=== PATIENT | female | born 1935 | race African-American/Black ===

== ENCOUNTER → 2016-07-24 | Outpatient (CLI) | payer MEDICARE, MEDICAID ==
[2016-03-06 09:50] VITALS: BP 123/61
[~2016-07-24] MED LIST: AMIO200T2 PO; ASPI325T4 PO; CARV25TA PO; CARV6.252 PO; CLOP75TA PO; CONTRAST GIVEN MC PRN; DIPH25CA3 PO; DOBU1000; EZET10TA3 PO; FLUT16SP2 NAS; FLUT1DIS IH; FLUT1DIS3 IH; FURO-68 PO; FURO20TA3 PO; FURO80TA72 PO; HYDR-923 PO; HYDR-971 PO; IOHEXOL 300 MG/ML 50 ML VIAL. PO ONE; IOHEXOL 300 MG/ML 75 ML VIAL IV ONE; ISOS60TA PO; LEVO500T38 PO; LEVO50TA5 PO; LISI-334 PO; METO5TAB PO; PANT40TA3 PO; POTA20TA4 PO; PROAIR HFA8.5 GM IH; PROAIR HFA8.5 GM INH; SIMV40TA3 PO; TEMA15CA PO; WARF2.5T PO; WARF3TAB PO; WARF5TAB PO
--- NOTE | 2016-07-24 14:35 | RAD ---
CT of the abdomen with contrast, 07/24/2016: History: Follow-up duodenal tumor Multidetector CT imaging was performed following oral and IV administration of contrast. Comparison is made to a study from 05/23/2015. There is a oval-shaped heterogeneous mass present in the upper abdomen just to the right of midline. This cannot be clearly from the pancreatic body or the medial wall of the second portion of the duodenum. It currently measures 6.1 cm in greatest width compared to a measurement of 5.1 cm on the previous study. On the coronal images it demonstrates an oblique measurement of 6.7 cm compared to a measurement of 5.6 cm on the previous study. There is no associated duodenal obstruction. The pancreatic tail is unremarkable. A tiny 5 mm cystic appearing area is noted in the uncinate process of the pancreas. No bile duct or pancreatic ductal dilatation is evident. There are several small low-density lesions in the liver. The largest of these lies anteriorly in the left lobe and measures approximately 12 mm. It measured approximately 8 mm on the previous study. Just lateral to this lesion there is a small 5 mm density lesion which also appears more prominent. A 5 mm hepatic nodule now identified along the anterior aspect of the gallbladder fossa was not visible on the previous study. These lesions are of low density. The gallbladder is unremarkable. The spleen shows no abnormality. Several small cortical cysts are present in both kidneys. There is renal cortical scarring. Both adrenal glands are mildly enlarged and unchanged, in a pattern suggesting adrenal hyperplasia. There is aortic atherosclerosis. There is mild dilatation of the infrarenal abdominal aorta which measures only 2.6 cm in AP dimension. No retroperitoneal adenopathy is seen. No free fluid is evident in the abdomen. Mild scattered degenerative changes are present in the spine. IMPRESSION: 1. Enlarging upper abdominal mass, inseparable from the pancreatic body and second portion of the duodenum. The given history is that of malignant carcinoid tumor of the duodenum. 2. Small scattered hepatic lucencies are too small to characterize, however, several of these appear to be new or have enlarged slightly. Metastatic disease is suspected. 3.Bilateral adrenal hyperplasia. PQRS Compliance Statement: One or more of the following individualized dose reduction techniques were utilized for this examination: 1. Automated exposure control 2. Adjustment of the mA and/or kV according to patient size 3. Use of iterative reconstruction technique
== END | disposition home or self-care (01) ==
LOC: CT 10:02
PROVIDERS: ATTEND Internal Medicine
DX: C7A.010 Malignant carcinoid tumor of the duodenum (principal); E27.8 Other specified disorders of adrenal gland
CPT/HCPCS: 74160; Q9967